=== PATIENT | female | born 1950 | race Caucasian/White ===

== ENCOUNTER → 2019-01-24 | Outpatient (CLI) | payer MEDICARE ==
--- NOTE | 2019-01-24 10:48 | Diagnostic Imaging Report ---
INDICATION: Right knee pain, no known injury. TECHNIQUE: Three views of the right knee. CORRELATION STUDY: None. FINDINGS: The joint spaces are fairly well-maintained. The articular surface is smooth. No significant marginal osteophyte formation. There is slight narrowing of the patellofemoral compartment with small spur-like formation superiorly. IMPRESSION: Mild degenerative changes of the patellofemoral compartment. No acute bony abnormality. Dictated by: Dictated on workstation # [id number]
== END ==
LOC: RAD FS 09:23
PROVIDERS: ATTEND Nurse Practitioner
DX: M17.11 Unilateral primary osteoarthritis, right knee (principal)
CPT/HCPCS: 73562

== ENCOUNTER → 2019-02-21 | Outpatient (CLI) | payer MEDICARE ==
--- NOTE | 2019-02-21 17:52 | Diagnostic Imaging Report ---
EXAMINATION: Magnetic resonance imaging of the right knee without intravenous contrast DATE: February 21, 2019. COMPARISON: Right knee radiographs January 24, 2019. INDICATION: 69-year-old female, right knee pain. TECHNIQUE: Multiplanar, multisequence non contrast enhanced MR imaging was accomplished. FINDINGS: MENISCI: There is signal in the medial meniscus not meeting strict MRI criteria for a definite diagnosis of tear. The lateral meniscus is intact. LIGAMENTS AND TENDONS: The anterior and posterior cruciate ligaments are intact. The medial collateral ligament is intact. The iliotibial band, mid third lateral capsular ligament, fibular collateral ligament, biceps femoris tendon and conjoined tendon are intact. The quadriceps tendon and patella ligament are intact. JOINT: There is a full-thickness cartilage defect involving the median patellar ridge and lateral half of the medial patellar facet measuring 10.5 mm in transverse dimension on axial T2 fat saturation sequence image 7. There is mild irregularity of the cartilage of the femoral trochlea. The medial and lateral compartment cartilage appears intact. There is no knee joint effusion, prominent synovitis, or intra-articular body. BONE: There is unremarkable bone marrow signal. Specifically, negative for fracture, osteomyelitis, osteonecrosis, or marrow replacing process. BURSAE AND SOFT TISSUES: There is no identified sizable Mejia's cyst. There is nonspecific prepatellar subcutaneous edema. IMPRESSION: 1. Intact menisci and cruciate ligaments. Additional ligaments and tendons are also intact. 2. Full-thickness cartilage defect of the patella and mild trochlear cartilage irregularity. No sizable knee joint effusion, prominent synovitis, or identified intra-articular body. 3. No acute fracture, bone contusion, or evidence of osteonecrosis. Dictated by: Dictated on workstation # [id number]
== END ==
LOC: RAD 12:07
PROVIDERS: ATTEND Nurse Practitioner
DX: M23.231 Derangement of other medial meniscus due to old tear or injury, right knee (principal); M17.11 Unilateral primary osteoarthritis, right knee; M94.8X8 Other specified disorders of cartilage, other site
CPT/HCPCS: 73721

== ENCOUNTER 2019-06-23 20:11 | Emergency (ER) | payer MEDICARE ==
[~2019-06-23] VITALS: Ht 154.9 cm; Wt 60.4 kg
--- OUTSIDE RECORDS SUMMARY | 2019-06-23 20:16 | XMS REPORT ---
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 Dec, 0 [id number] ALLERGIES No Information ENCOUNTERS Encounter Location Date Diagnosis [address] [place] [address] Jan, Encounter for immunization Z 23 [address] [place] [address] Jan, [address] [place] [address] Jan, [address] [place] [address] Jan, Screening mammogram, encount er for Z12.31 [address] [place] [address] Dec, [address] [place] [address] Dec, Tick bite, initial encounter W57.XXXA [address] [place] [address] Dec, Tick bite, initial encounter W57.XXXA and Screening mammogram, encounter for Z12.31 [facility] [address] [place] [address] Oct, [facility] [place] [address] [place] [address] Aug, Encounter for immunization Z 23 and Need for shingles vaccine Z23 [facility] [address] [place] [address] Aug, [facility] [address] [place] [address] Aug, [facility] [address] [place] [address] Jul, Acute non-recurrent maxillar y sinusitis J01.00 [facility] [address] [place] [address] Jul, Acute effusion of both middl e ears H65.193 [facility] [address] [place] [address] May, [facility] [place] [address] [place] [address] May, Essential hypertension I10 [facility] [address] [place] [address] May, Essential hypertension I10 a nd Healthcare maintenance Z00.00 [facility] [address] [facility] [place] [address] May, [facility] [place] [address] [place] [address] May, Essential hypertension I10 a nd Healthcare maintenance Z00.00 [facility] [place] [address] [place] [address] Apr, [facility] [address] [facility] [place] [address] Jan, [facility] [address] [facility] [place] [address] May, [facility] [address] [id number] [place] [address] Jan, IMMUNIZATIONS No Known Immunizations SOCIAL HISTORY Never Assessed REASON FOR VISIT medication refill PLAN OF CARE VITAL SIGNS MEDICATIONS Medication Instructions Dosage Frequency Start Date End Date Duration S bozena Hydrochlorothiazide 12.5 MG Orally Once a day 1 tablet 24h 17 A pr, 2017 30 day(s) Active RESULTS No Results PROCEDURES No Known procedures INSTRUCTIONS MEDICATIONS ADMINISTERED No Known Medications MEDICAL (GENERAL) HISTORY Type Description Date Medical History hypertension Medical History total hysterectomy
--- OUTSIDE RECORDS SUMMARY | 2019-06-23 20:16 | XMS REPORT | Continuity of Care Document ---
Author Organization Unknown Address Unknown Phone Unavailable Allergies There is no data. Medications There is no data. Problems Date Dx Coded Attending Type Code Diagnosis Diagnosed By 02/06/2019 MALINI STEWART Ot M17.11 UNILATERAL PRIMARY OSTEOARTHRITIS, RIGHT 02/23/2019 MALINI TSEWART Ot M17.11 UNILATERAL PRIMARY OSTEOARTHRITIS, RIGHT 02/23/2019 MALINI STEWART Ot M23.231 DERANG OF MEDIAL MENISCUS DUE TO OLD TEA 02/23/2019 MALINI STEWART Ot M94.8X8 OTHER SPECIFIED DISORDERS OF CARTILAGE, 03/15/2019 MALINI STEWART Ot M17.11 UNILATERAL PRIMARY OSTEOARTHRITIS, RIGHT 03/15/2019 MALINI STEWART Ot M23.231 DERANG OF MEDIAL MENISCUS DUE TO OLD TEA 03/15/2019 MALINI STEWART Ot M94.8X8 OTHER SPECIFIED DISORDERS OF CARTILAGE, 03/24/2019 MALINI STEWART Ot M17.11 UNILATERAL PRIMARY OSTEOARTHRITIS, RIGHT 03/24/2019 MALINI STEWART Ot M23.231 DERANG OF MEDIAL MENISCUS DUE TO OLD TEA 03/24/2019 MALINI STEWART Ot M94.8X8 OTHER SPECIFIED DISORDERS OF CARTILAGE, Procedures There is no data. Results Test Result Range LIPID PANEL - 06/01/18 09:45 CHOLESTEROL, TOTAL 193 mg/dL <200 HDL CHOLESTEROL 72 mg/dL >50 TRIGLYCERIDES 58 mg/dL <150 LDL-CHOLESTEROL 107 mg/dL (calc) NRG CHOL/HDLC RATIO 2.7 (calc) <5.0 NON HDL CHOLESTEROL 121 mg/dL (calc) <13 0 CMP - 06/01/18 09:45 GLUCOSE 87 mg/dL 65-99 UREA NITROGEN (BUN) 15 mg/dL 7-25 CREATININE 0.78 mg/dL 0.50-0.99 eGFR NON-AFR. [place] 78 mL/min/1.73m2 > OR = 60 eGFR 91 mL/min/1.73m2 > OR = 60 BUN/CREATININE RATIO NOT APPLICABLE (calc) 6-22 SODIUM 142 mmol/L 135-146 POTASSIUM 4.0 mmol/L 3.5-5.3 CHLORIDE 105 mmol/L 98-110 CARBON DIOXIDE 31 mmol/L 20-32 CALCIUM 9.6 mg/dL 8.6-10.4 PROTEIN, TOTAL 6.4 g/dL 6.1-8.1 ALBUMIN 4.2 g/dL 3.6-5.1 GLOBULIN 2.2 g/dL (calc) 1.9-3.7 ALBUMIN/GLOBULIN RATIO 1.9 (calc) 1.0-2. 5 BILIRUBIN, TOTAL 0.7 mg/dL 0.2-1.2 ALKALINE PHOSPHATASE 68 U/L 33-130 AST 54 U/L 10-35 ALT 13 U/L 6-29 CBC - 06/01/18 09:45 WHITE BLOOD CELL COUNT 5.4 Thousand/uL 3 .8-10.8 RED BLOOD CELL COUNT 4.70 Million/uL 3.8 0-5.10 HEMOGLOBIN 13.8 g/dL 11.7-15.5 HEMATOCRIT 41.5 % 35.0-45.0 MCV 88.3 fL 80.0-100.0 MCH 29.4 pg 27.0-33.0 MCHC 33.3 g/dL 32.0-36.0 RDW 12.8 % 11.0-15.0 PLATELET COUNT 263 Thousand/uL 140-400 MPV 10.5 fL 7.5-12.5 ABSOLUTE NEUTROPHILS 3191 cells/uL 1500- 7800 ABSOLUTE LYMPHOCYTES 1658 cells/uL 850-3 900 ABSOLUTE MONOCYTES 421 cells/uL 200-950 ABSOLUTE EOSINOPHILS 70 cells/uL 15-500 ABSOLUTE BASOPHILS 59 cells/uL 0-200 NEUTROPHILS 59.1 % NRG LYMPHOCYTES 30.7 % NRG MONOCYTES 7.8 % NRG EOSINOPHILS 1.3 % NRG BASOPHILS 1.1 % NRG TSH - 06/01/18 09:45 TSH 1.24 mIU/L 0.40-4.50 LYME, TOTAL ANTIBODY/REFLEX WESTERN BLOT - 01/13/19 13:02 LYME AB SCREEN <0.90 index NRG TICK BORNE DISEASE, ANTIBODY PANEL - 13:02 LYME AB SCREEN <0.90 index NRG INTERPRETATION NRG A. PHAGOCYTOPHILUM AB (IGG) <1:64 NR G A. PHAGOCYTOPHILUM AB (IGM) <1:20 NR G INTERPRETATION NRG BABESIA DUNCANI (WA1) ANTIBODY (IGG), IFA <1:256 NRG BABESIA MICROTI AB (IGG) <1:64 titer NRG BABESIA MICROTI AB (IGM) <1:20 titer NRG INTERPRETATION NRG E. CHAFFEENSIS AB IGG <1:64 NRG E. CHAFFEENSIS AB IGM <1:20 NRG Encounters ACCT No. Visit Date/Time Discharge Status Pt. Type Provider Facility Loc./Unit Complaint [id number] 01/13/2019 13:00:00 01/13/2019 23:59: 59 [id number] 01/13/2019 13:00:00 Document Registration [id number] 06/01/2018 10:00:00 Document Registration [id number] 02/21/2019 12:07:00 019 23:59:59 CLS Outpatient MALINI STEWART [facility] UNILATERAL PRIMARY OSTE OARTHRITIS KNEE RT [id number] 01/24/2019 09:23:00 019 23:59:59 CLS Outpatient MALINI STEWART [facility] FS M25.561
--- NOTE | 2019-06-23 20:23 | ED Upper Extremity ---
General Chief Complaint: Upper Extremity Stated Complaint: POSS BROKEN LEFT ARM/LACERATION Source: patient Exam Limitations: no limitations History of Present Illness Date Seen by Provider: June 23, 2019 Time Seen by Provider: 20:10 Initial Comments Patient presents to ER by private conveyance with chief complaint about half an hour prior to arrival she was walking her dog holding on the leash with her left hand while riding in a golf cart. The dog took off running backwards hyperextending her left elbow against the frame of the vehicle. She did not strike her head nor lose consciousness. She has no previous history of injury to her wrist or elbow. No history of surgeries there. She's not on blood thinners. She takes Benicar for blood pressure only. She is known to Dr. Garduno. She denies loss of consciousness. She has pain with movement in her left elbow and pain along the posterior portion of her olecranon process. Full range of motion of her hand and wrist. She has applied ice but has not taken any medicines for it yet. She rates the pain as a 10 out of 10. Allergies and Home Medications Allergies Coded Allergies: diphenhydramine (Verified Adverse Reaction, Unknown, 06/23/19) Home Medications Hydrocodone/Acetaminophen 1 Each Tablet, 0.5-1 EACH PO Q6H PRN for PAIN- BREAKTHROUGH Prescribed by: VONDA HERNANDEZ on 06/23/192109 Patient Home Medication List Home Medication List Reviewed: Yes Review of Systems Constitutional: No chills, No diaphoresis EENTM: No ear discharge, No ear pain Respiratory: No cough, No short of breath Cardiovascular: No chest pain, No edema Gastrointestinal: No abdominal pain, No nausea Genitourinary: No discharge, No dysuria Musculoskeletal: see HPI; No back pain; joint pain All Other Systems Reviewed Negative Unless Noted: Yes Past Gbmxycr-Zjrdej-Hodzey Hx Patient Social History Alcohol Use: Denies Use Recreational Drug Use: No Smoking Status: Never a Smoker Recent Foreign Travel: No Contact w/Someone Who Travel: No Physical Exam Vital Signs Vital Signs - First Documented 06/23/19 20:15 Temp 36.3 Pulse 90 Resp 16 B/P (MAP) 150/78 (102) Pulse Ox 97 O2 Delivery Room Air Capillary Refill : Height, Weight, BMI Height: '" Weight: lbs. oz. kg; BMI Method: General Appearance: WD/WN, mild distress HEENT: PERRL/EOMI, pharynx normal Neck: non-tender, full range of motion, supple, normal inspection Cardiovascular: normal peripheral pulses, regular rate, rhythm Respiratory: no respiratory distress, no accessory muscle use Shoulder: normal inspection, non-tender, no evidence of injury, normal ROM Elbow/Forearm: Left, bone tenderness (posterior olecranon process on the left arm), limited ROM, pain, soft tissue tenderness Wrist: Yes normal inspection, Yes non-tender, Yes no evidence of injury, Yes normal ROM Hand: normal inspection, non-tender, no evidence of injury, normal ROM, Left Neurologic/Tendon: normal sensation, normal motor functions, normal tendon functions, responds to pain, no evidence tendon injury Neurologic/Psychiatric: alert, normal mood/affect, oriented x 3 Skin: other (superficial abrasion to the left dorsal forearm) Progress/Results/Core Measures Results/Orders My Orders Orders - VONDA HERNANDEZ Elbow 3 View Left (06/23/19 20:17) Ketorolac Injection (Toradol Injection) (06/23/19 20:30) Fentanyl Injection (Sublimaze Injection (06/23/19 20:45) Medications Given in ED Current Medications Medications Dose Ordered Sig/Tobias Route Start Time Stop Time Status Last Admin Dose Admin Fentanyl Citrate 50 mcg ONCE ONCE IM 06/23/19 20:45 06/23/19 20:46 DC 06/23/19 20:40 50 MCG Ketorolac Tromethamine 60 mg ONCE ONCE IM 06/23/19 20:30 06/23/19 20:31 DC 06/23/19 20:29 60 MG Vital Signs/I&O 06/23/19 20:15 Temp 36.3 Pulse 90 Resp 16 B/P (MAP) 150/78 (102) Pulse Ox 97 O2 Delivery Room Air Progress Progress Note #1: Time: 20:21 Progress Note Patient has no history of coronary or kidney disease. We'll give her IM injection of Toradol for her pain and get 3 views of her left elbow where she seems to be having the pain. For her abrasions soap and water as well as a triple antibiotic appointment should be sufficient. Progress Note #2: Time: 20:40 Progress Note Plan to do a posterior arm splint and have her follow-up with Fentanyl 50 mcg IM. She is hesitant to use opiates because she has never used them in the past. Progress Note #3: Time: 21:07 Progress Note Patient is much more comfortable after fentanyl and posterior arm splint and sling placement. She still has brisk capillary refill and movement in all 5 digits as well as neurologically intact. We do not have an orthopedist application integration architect however she is familiar with Dr. Mendes and will follow-up with either him or primary care doctor Abram. Diagnostic Imaging Diagonstic Imaging: Xray Plain Films/CT/US/NM/MRI: elbow (3v) Comments Closed, nondisplaced, minimally angulated olecranon process fracture of the pro ximal ulna left arm. NAME: LINDSAY ANNE [facility] REC#: [id number] PT STATUS: REG ER : 1950 PHYSICIAN: VONDA HERNANDEZ MD ADMIT DATE: 06/23/19/ER FS Draft Date of Exam:06/23/19 ELBOW 3 VIEW LEFT HISTORY: Trauma to the left elbow. TECHNIQUE: Three views of the left elbow. COMPARISON: None. FINDINGS: There is a distracted fracture of the olecranon of the proximal left ulna, with approximately 1.5 cm of distraction. There is a small left elbow joint effusion. Small ossific fragments are seen both medial and lateral to the elbow. These could represent avulsion fractures of the epicondyles, if acute. IMPRESSION: 1. Distracted fracture of the left ulna olecranon. 2. Calcifications at the medial and lateral epicondyles may represent avulsion fractures. 3. Small left elbow joint effusion. Dictated on workstation # [id number] Dict: 06/23/192041 Trans: 06/23/192048 [facility] [id number] Interpreted by: TASHA PAIGE MD Electronically signed by: Reviewed: Reviewed by Me Departure Impression Primary Impression: Closed olecranon fracture Qualified Codes: S52.022A - Displaced fracture of olecranon process without intraarticular extension of left ulna, initial encounter for closed fracture Additional Impression: Abrasion of forearm, left Qualified Codes: S50.812A - Abrasion of left forearm, initial encounter Disposition: HOME, SELF-CARE Condition: Stable Departure-Patient Inst. Decision time for Depature: 21:08 Referrals: ALMA GARDUNO MD (PCP/Family) Primary Care Physician ARIEL MENDES MD Patient Instructions: Elbow Fracture (DC), How to Use a Shoulder Sling Add. Discharge Instructions: Ice for 20 minutes every hour or 2 for the first 2-3 days as needed for swelling or pain. You may also elevate your elbow above the level of your heart while laying down to help reduce swelling and pain. Tylenol 1000 mg every 8 hours as needed for pain. Ibuprofen 800 mg every 8 hours as needed for pain. One half to one tablet of the hydrocodone every 6 hours as needed for breakthrough pain. Will cause drowsiness and constipation. MiraLAX 1 capful in a 6 ounce glass of water daily can help combat constipation. If you're having numbness, tingling, discoloration or swelling of your fingers then you need to loosen the wraps and rewrapped them. Elevate the extremity above the level of your heart. If this does not correct the problem then you should return to the doctor to have it reexamined immediately. Topical analgesic creams such as icy hot, Biofreeze or Station oil may be helpful for pain. Do not apply these over broken skin. Keep the abrasion clean with regular soap and water only. It is okay to cover them with a thin coat of Vaseline or triple antibiotic ointment as well as a dressing changed daily if you wish. Plan to follow up in 1 week with either your primary doctor or an orthopedic surgeon. All discharge instructions reviewed with patient and/or family. Voiced understanding. Scripts Hydrocodone/Acetaminophen (Hydrocodone-Acetamin 5-325 mg) 1 Each Tablet 0.5-1 EACH PO Q6H PRN for PAIN-BREAKTHROUGH, #10 TAB 0 Refills Prov: VONDA HERNANDEZ 06/23/19 VONDA HERNANDEZ June 23, 2019 20:23
[2019-06-23] MEDS ORDERED: KETOROLAC 60 MG/2 ML VIAL IM ONE (20:30)
[2019-06-23] MEDS ORDERED: fentaNYL INJECTION 100 MCG/2 ML AMP IM ONE (20:45)
--- NOTE | 2019-06-23 20:50 | Diagnostic Imaging Report ---
HISTORY: Trauma to the left elbow. TECHNIQUE: Three views of the left elbow. COMPARISON: None. FINDINGS: There is a distracted fracture of the olecranon of the proximal left ulna, with approximately 1.5 cm of distraction. There is a small left elbow joint effusion. Small ossific fragments are seen both medial and lateral to the elbow. These could represent avulsion fractures of the epicondyles, if acute. IMPRESSION: 1. Distracted fracture of the left ulna olecranon. 2. Calcifications at the medial and lateral epicondyles may represent avulsion fractures. 3. Small left elbow joint effusion. Dictated by: Dictated on workstation # [id number]
[2019-06-23] MEDS ORDERED: HYDR-83 PO (21:10)
[2019-06-23 21:12] VITALS: BP 150/78
== END 2019-06-23 21:13 | disposition home or self-care (01) ==
LOC: EDUNIT# 20:11 → ER FS 20:13
DX: S52.025A Nondisplaced fracture of olecranon process without intraarticular extension of left ulna, initial encounter for closed fracture (principal); S50.812A Abrasion of left forearm, initial encounter; Z88.8 Allergy status to other drugs, medicaments and biological substances; X50.9XXA Other and unspecified overexertion or strenuous movements or postures, initial encounter
CPT/HCPCS: 29105; 73080

== ENCOUNTER → 2019-06-26 | Outpatient (CLI) | payer MEDICARE ==
[~2019-06-26] MED LIST: HYDR-83 PO
--- NOTE | 2019-06-26 16:14 | Diagnostic Imaging Report ---
EXAMINATION: Left elbow radiographs, 3 views. COMPARISON: June 23, 2019 HISTORY: 69-year-old female, followup fracture. FINDINGS: There is a displaced fracture of the olecranon. There is proximal to distal splaying of fracture fragments measuring approximately 1.4 cm which is essentially unchanged since the comparison exam. There is offset of the articulating surface of the proximal ulna. There is adjacent soft tissue swelling. There is no interval periosteal reaction or bony callus bridging. There is a linear ossification medially which appears more well-defined than on the comparison study. This potentially could relate to a small displaced fracture fragment or an avulsion related fracture. IMPRESSION: 1. Displaced intra-articular fracture of the proximal ulna with proximal to distal splaying of fracture fragments estimated at 1.4 cm and offset of the articulating surface. 2. Predominantly linear ossification within the medial soft tissues distal to the level of the expected site of humeral attachment of the anterior band of the medial ulnar collateral ligament which could relate to an avulsion related fracture. Dictated by: Dictated on workstation # [id number]
== END ==
LOC: RAD FS 14:51
PROVIDERS: ATTEND Nurse Practitioner
DX: S52.022A Displaced fracture of olecranon process without intraarticular extension of left ulna, initial encounter for closed fracture (principal); X58.XXXA Exposure to other specified factors, initial encounter
CPT/HCPCS: 73080

== ENCOUNTER 2019-10-30 11:39 | Emergency (ER) | payer MEDICARE ==
[~2019-10-30] VITALS: Ht 154.9 cm; Wt 58.6 kg
[~2019-10-30 11:39] MED LIST changes: +ACHD5005 PO; -HYDR-83 PO
--- NOTE | 2019-10-30 11:41 | ED General ---
General Stated Complaint: VOMITING; DIZZINESS; BP 133/90; WEAKNESS Source of Information: Patient History of Present Illness Date Seen by Provider: Oct 30, 2019 Time Seen by Provider: 11:41 Initial Comments Patient is a 69-year-old female who comes to the emergency department today complaining of episodes of dizziness. She felt dizzy when she got out of bed today. She describes lightheadedness. She did not have any vertigo symptoms. The episode lasted a few minutes and resolved. She went about her day. She had an additional episode when she was at her chiropractor's office later in the morning. She describes that the episodes occur primarily with position changes. She does not have chest pain, shortness of breath, palpitations. No fever or recent viral symptoms. She does endorse that she has been followed by her physician lately for control of blood pressure. She normally takes Benicar. She had been taking one half tablet daily but recently increased to a full tablet daily. No nausea or vomiting. No abdominal pain. No urinary symptoms. Allergies and Home Medications Allergies Coded Allergies: diphenhydramine (Verified Adverse Reaction, Unknown, 06/23/19) Home Medications Hydrocodone/Acetaminophen 1 Each Tablet, 0.5-1 EACH PO Q6H PRN for PAIN- BREAKTHROUGH Prescribed by: VONDA HERNANDEZ on 06/23/192109 Patient Home Medication List Home Medication List Reviewed: Yes Review of Systems Review of Systems Constitutional: no symptoms reported EENTM: no symptoms reported Respiratory: no symptoms reported Cardiovascular: no symptoms reported Genitourinary: no symptoms reported Musculoskeletal: no symptoms reported Skin: no symptoms reported All Other Systems Reviewed Negative Unless Noted: Yes Physical Exam Vital Signs Vital Signs - First Documented 10/30/19 11:45 Temp 35.9 Pulse 80 Resp 16 B/P (MAP) 162/75 (104) Pulse Ox 100 O2 Delivery Room Air Capillary Refill : Height, Weight, BMI Height: '" Weight: lbs. oz. 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 Norm as Tested Skin: Normal Color, Warm/Dry Progress/Results/Core Measures Suspected Sepsis SIRS Temperature: Pulse: Respiratory Rate: Laboratory Tests 10/30/19 12:45: White Blood Count 5.8 Blood Pressure / Mean: Laboratory Tests 10/30/19 12:45: Creatinine 0.71, Platelet Count 285 Results/Orders Lab Results Laboratory Tests Test 10/30/19 11:45 10/30/19 12:45 Range/Units Urine Color YELLOW Urine Clarity CLEAR Urine pH 7.5 5-9 Urine Specific [place] 1.015 L 1.016-1.022 Urine Protein NEGATIVE NEGATIVE Urine Glucose (UA) NEGATIVE NEGATIVE Urine Ketones NEGATIVE NEGATIVE Urine Nitrite NEGATIVE NEGATIVE Urine Bilirubin NEGATIVE NEGATIVE Urine Urobilinogen 0.2 < = 1.0 MG/DL Urine Leukocyte Esterase NEGATIVE NEGATIVE Urine RBC (Auto) TRACE H NEGATIVE Urine RBC 0-2 /HPF Urine WBC NONE /HPF Urine Squamous Epithelial Cells RARE /HPF Urine Crystals NONE /LPF Urine Bacteria NONE /HPF Urine Casts NONE /LPF Urine Mucus NEGATIVE /LPF Urine Culture Indicated NO White Blood Count 5.8 4.3-11.0 10^3/uL Red Blood Count 4.91 4.35-5.85 10^6/uL Hemoglobin 14.3 11.5-16.0 G/DL Hematocrit 43 35-52 % Mean Corpuscular Volume 88 80-99 FL Mean Corpuscular Hemoglobin 29 25-34 PG Mean Corpuscular Hemoglobin Concent 33 32-36 G/DL Red Cell Distribution Width 12.5 10.0-14.5 % Platelet Count 285 130-400 10^3/uL Mean Platelet Volume 10.3 7.4-10.4 FL Neutrophils (%) (Auto) 74 42-75 % Lymphocytes (%) (Auto) 19 12-44 % Monocytes (%) (Auto) 6 0-12 % Eosinophils (%) (Auto) 0 0-10 % Basophils (%) (Auto) 1 0-10 % Neutrophils # (Auto) 4.3 1.8-7.8 X 10^3 Lymphocytes # (Auto) 1.1 1.0-4.0 X 10^3 Monocytes # (Auto) 0.4 0.0-1.0 X 10^3 Eosinophils # (Auto) 0.0 0.0-0.3 10^3/uL Basophils # (Auto) 0.1 0.0-0.1 10^3/uL Sodium Level 143 135-145 MMOL/L Potassium Level 3.9 3.6-5.0 MMOL/L Chloride Level 104 98-107 MMOL/L Carbon Dioxide Level 27 21-32 MMOL/L Anion Gap 12 5-14 MMOL/L Blood Urea Nitrogen 11 7-18 MG/DL Creatinine 0.71 0.60-1.30 MG/DL Estimat Glomerular Filtration Rate > 60 BUN/Creatinine Ratio 15 Glucose Level 122 H 70-105 MG/DL Calcium Level 9.7 8.5-10.1 MG/DL Troponin I < 0.30 <0.30 NG/ML Pro-B-Type Natriuretic Peptide 36.3 <75.0 PG/ML My Orders Orders - KECIA THOMAS DO Ed Iv/Invasive Line Start (10/30/19 12:31) Cbc With Automated Diff (10/30/19 12:31) Basic Metabolic Panel (10/30/19 12:31) Troponin I Fs (10/30/19 12:31) Probnp Fs (10/30/19 12:31) Ekg Tracing (10/30/19 12:31) Ns Iv 1000 Ml (Sodium Chloride 0.9%) (10/30/19 12:45) Ct Head Wo (10/30/19 12:44) Urinalysis (10/30/19 12:45) Ns Iv 500 Ml (Sodium Chloride 0.9%) (10/30/19 14:15) Vital Signs/I&O 10/30/19 11:45 Temp 35.9 Pulse 80 Resp 16 B/P (MAP) 162/75 (104) Pulse Ox 100 O2 Delivery Room Air Capillary Refill : Progress Note : Time: 12:30 Progress Note Patient is seen and examined on arrival to her room. She has a normal neurologic exam. Her symptoms are associated with position changes. EKG does not reveal acute findings suggestive of ischemia. We will check CT had an basic labs and give IV fluids. 14:20: All results are reviewed and discussed with the patient. All of her questions are answered. No acute findings today to explain her symptoms. She was given 1500 mL total normal saline in the ER and her symptoms 100% resolved. She was ambulatory with a normal steady gait. She was feeling at baseline. Patient does states she played 9 games of [employer] ball yesterday return precautions are discussed and she was advised to come back to the ER for any new or worsening symptoms. Otherwise, continue to follow with her primary care doctor for management of her blood pressure. ECG Initial ECG Impression Date: Oct 30, 2019 Initial ECG Impression Time: 12:00 Initial ECG Rate: 74 Initial ECG Rhythm: Normal Sinus Initial ECG Intervals: Normal Initial ECG Impression: Normal Departure Impression Primary Impression: Dehydration Additional Impression: Dizziness Disposition: 01 HOME, SELF-CARE Condition: Improved KECIA THOMAS DO Oct 30, 2019 11:41
[2019-10-30] MEDS ORDERED: NS IV 1000 ML 1,000 ML IV SCH (12:45)
[2019-10-30 12:57] LABS: BILIRUBIN,URINE NEGATIVE (NEGATIVE); CLARITY,URINE CLEAR; COLOR,URINE YELLOW; GLUCOSE, URINE (UA) NEGATIVE (NEGATIVE); KETONES,URINE NEGATIVE (NEGATIVE); LEUKOCYTE ESTERASE ,URINE NEGATIVE (NEGATIVE); NITRITE,URINE NEGATIVE (NEGATIVE); PH,URINE 7.5 (5-9); PROTEIN,URINE NEGATIVE (NEGATIVE); RBC,URINE 0-2 /HPF; SQUAMOUS EPITHELIAL CELL,UR RARE /HPF
[2019-10-30 12:58] LABS: HEMOGLOBIN 14.3 G/DL (11.5-16.0); MEAN CORPUSCULAR HEMOGLOBIN 29 PG (25-34); WHITE BLOOD COUNT 5.8 10^3/uL (4.3-11.0)
[2019-10-30 12:59] LABS: BASOPHILS # (AUTO) 0.1 10^3/uL (0.0-0.1); BASOPHILS % (AUTO) 1 % (0-10); EOSINOPHILS % (AUTO) 0 % (0-10); HEMATOCRIT 43 % (35-52); LYMPHOCYTES # (AUTO) 1.1 X 10^3 (1.0-4.0); LYMPHOCYTES % (AUTO) 19 % (12-44); MEAN CORPUSCULAR HGB CONC 33 G/DL (32-36); MEAN CORPUSCULAR VOLUME 88 FL (80-99); MEAN PLATELET VOLUME 10.3 FL (7.4-10.4); MONOCYTES # (AUTO) 0.4 X 10^3 (0.0-1.0); MONOCYTES % (AUTO) 6 % (0-12); NEUTROPHILS # (AUTO) 4.3 X 10^3 (1.8-7.8); NEUTROPHILS % (AUTO) 74 % (42-75); PLATELET COUNT 285 10^3/uL (130-400)
--- NOTE | 2019-10-30 13:15 | Diagnostic Imaging Report ---
PROCEDURE: CT head without contrast. TECHNIQUE: Multiple contiguous axial images were obtained through the brain without the use of intravenous contrast. Auto Exposure Controls were utilized during the CT exam to meet ALARA standards for radiation dose reduction. INDICATION: Sudden onset dizziness and weakness. No comparison is available. FINDINGS: There are no CT findings of an acute intracranial abnormality. There is no evidence of intracranial hemorrhage. There is no intracranial mass effect or shift. There is no hydrocephalus. There is no abnormal extra-axial fluid collection. The basilar cisterns appear patent. There is no territorial loss of doe-white differentiation or abnormal low density within the basal ganglia or the artem. The mastoid air cells appear clear. The visualized paranasal sinuses are clear. Orbital contents unremarkable. There is no acute calvarial abnormality. IMPRESSION: 1. No CT evidence of an acute intracranial abnormality. Dictated by: Dictated on workstation # [id number]
[2019-10-30 13:33] LABS: BUN/CREATININE RATIO 15; CALCIUM 9.7 MG/DL (8.5-10.1); CARBON DIOXIDE 27 MMOL/L (21-32); CHLORIDE 104 MMOL/L (98-107); CREATININE SERUM 0.71 MG/DL (0.60-1.30); GFR ESTIMATED > 60; GLUCOSE 122 MG/DL (70-105); POTASSIUM 3.9 MMOL/L (3.6-5.0); SODIUM 143 MMOL/L (135-145)
[2019-10-30] MEDS ORDERED: NS IV 500 ML 500 ML IV SCH (14:15)
[2019-10-30 14:46] VITALS: BP 137/76
== END 2019-10-30 14:46 | disposition home or self-care (01) ==
LOC: EDUNIT# 11:39 → ER FS 11:41
DX: E86.0 Dehydration (principal); R42 Dizziness and giddiness; Z88.8 Allergy status to other drugs, medicaments and biological substances
CPT/HCPCS: 36415; 70450; 80048; 81000; 83880; 84484; 85025; 93005

== ENCOUNTER → 2019-11-27 | Outpatient (CLI) | payer MEDICARE ==
--- NOTE | 2019-11-27 14:54 | Diagnostic Imaging Report ---
PROCEDURE: US carotid duplex, bilateral. TECHNIQUE: Multiple real-time grayscale images were obtained over the carotid arteries in various projections, bilaterally. Additional spectral analysis and color Doppler duplex images were also obtained. INDICATION: Transient ischemic attacks. FINDINGS: There is mild plaque in both carotid systems. Velocities are normal bilaterally. No velocity elevation or stenosis is seen. Both vertebral arteries show antegrade flow. IMPRESSION: Mild bilateral carotid plaque. There is no evidence of a hemodynamically significant stenosis. Parameters based on the consensus panel Funes-Scale and Doppler ultrasound criteria published December 2002, Radiology, Volume 229. DOPPLER (peak systolic velocity M/S Right Left CCA 0.90 0.85 ICA Proximal 1.04 0.76 ICA Mid 0.93 0.83 ICA Distal 0.87 0.94 RATIO 1.15 1.11 ECA 0.91 0.93 VERT 0.56 0.56 Dictated by: Dictated on workstation # [id number]
== END ==
LOC: CARD 13:00
PROVIDERS: ATTEND Family Medicine
DX: I65.23 Occlusion and stenosis of bilateral carotid arteries (principal); I08.1 Rheumatic disorders of both mitral and tricuspid valves; I10 Essential (primary) hypertension; Z86.73 Personal history of transient ischemic attack (TIA), and cerebral infarction without residual deficits
CPT/HCPCS: 93306; 93880

== ENCOUNTER → 2020-09-24 | Outpatient (CLI) | payer SELFPAY ==
--- NOTE | 2020-09-24 14:26 | Diagnostic Imaging Report ---
EXAMINATION: CT calcium scoring without contrast. TECHNIQUE: Multiple contiguous axial images were obtained through the chest without the use of intravenous contrast for purposes of calcium scoring. All CT scans use one or more of the following dose optimizing techniques: automated exposure control, MA and/or KvP adjustment based on patient size and exam type or iterative reconstruction. HISTORY: Essential hypertension COMPARISON: None available. FINDINGS: The calculated coronary artery calcium score is zero. The automatic calculation shows a score 3.5, but the included calcifications in the lung not the coronary artery. There is no edema or pneumonia. No pleural effusion. No pneumothorax. No suspicious nodules. Heart size is normal. No pericardial effusion. Aorta is normal in caliber. There is no axillary or supraclavicular lymphadenopathy. There is no mediastinal lymphadenopathy. Limited views of the upper abdomen are unremarkable. There are no suspicious osseus lesions. IMPRESSION: 1. Calculated coronary artery calcium score of zero. Dictated by: Dictated on workstation # [id number]
== END ==
LOC: RAD FS 10:41
PROVIDERS: ATTEND Family Medicine
DX: I10 Essential (primary) hypertension (principal)
CPT/HCPCS: 75571